=== PATIENT | male | born 1965 | race Caucasian/White ===

== ENCOUNTER 2016-06-24 05:07 | Emergency (ER) | payer SELFPAY ==
[~2016-06-24] VITALS: Ht 180.3 cm; Wt 90.0 kg
[~2016-06-24 05:07] MED LIST: ACET325S8 PO; AMOX500T PO; BUSP10 PO; LACT10SO47 PO; LATU40TA PO; LURA20TA PO; PRAZ2 PO; VENTAER INH
[2016-06-24 05:09] VITALS: BP 116/72; PULSE 81; RESP 18; TEMP 97.9; O2SAT 94
[2016-06-24] MEDS ORDERED: KETOROLAC TROMETHAMINE 60 MG/2 ML (IM) VIAL IM ONE (05:30)
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
[2016-06-24] MEDS ORDERED: NAPROXEN 500 MG TAB PO ONE (05:45)
--- NOTE | 2016-06-24 06:04 | RADRPT ---
EXAM DATE/TIME: 06/24/2016 05:29 [facility] COMPARISON: No previous studies available for comparison. INDICATIONS : Fall. Left ankle pain. MEDICAL HISTORY : None. SURGICAL HISTORY : None. ENCOUNTER: Initial ACUITY: 1 day PAIN SCORE: 8/10 LOCATION: Left lateral FINDINGS: 3 views of the left ankle reveal an acute fracture normal distal fibular metaphysis. This is obliquel y oriented in nature relative to the long axis of the bone. No angulation or distraction. Overlying s oft tissue swelling. Distal tibia is intact. CONCLUSION: 1. Acute distal fibular fracture. Leland Duran Jr., MD on June 24, 2016 at 6:01 Board Certified Radiologist. This report was verified electronically.
[2016-06-24] MEDS ORDERED: NAPR500 PO (06:19)
== END 2016-06-24 07:04 | disposition home or self-care (01) ==
LOC: NEPB 05:07
DX: S82.832A Other fracture of upper and lower end of left fibula, initial encounter for closed fracture (principal); H91.91 Unspecified hearing loss, right ear; F17.200 Nicotine dependence, unspecified, uncomplicated; W18.49XA Other slipping, tripping and stumbling without falling, initial encounter; X50.1XXA Overexertion from prolonged static or awkward postures, initial encounter; Y92.838 Other recreation area as the place of occurrence of the external cause; Z59.0 Homelessness; Z87.39 Personal history of other diseases of the musculoskeletal system and connective tissue; Z87.19 Personal history of other diseases of the digestive system; Z87.09 Personal history of other diseases of the respiratory system; Z86.69 Personal history of other diseases of the nervous system and sense organs; Z86.59 Personal history of other mental and behavioral disorders
CPT/HCPCS: 29515; 73610; 99284; E0113

== ENCOUNTER 2016-11-16 21:41 | Inpatient (IN) | payer OTHER ==
[~2016-11-16] VITALS: Ht 185.4 cm; Wt 86.0 kg
[~2016-11-16 21:41] MED LIST changes: +NAPR500 PO
[2016-11-16 22:08] VITALS: BP 132/80; PULSE 76; RESP 18; TEMP 98; O2SAT 98
[2016-11-16] MEDS ORDERED: SODIUM CHLOR 0.9% 1000 ML INJ 1,000 ML IV SCH (22:27)
[2016-11-16] MEDS ORDERED: MORPHINE SULFATE 4 MG/ML INJ IV PUSH ONE (22:30)
[2016-11-16] MEDS ORDERED: TETANUS/DIPHTHERIA TOXOID ADULT 0.5 ML VIAL IM ONE (22:30)
[2016-11-16] MEDS ORDERED: PIPERACIL-TAZO 3.375 GM PREMIX 50 ML IV ONE (22:30)
[2016-11-16 23:05] LABS: AUTOMATED NEUTROPHIL # 2.8 TH/MM3 (1.8-7.7); BASOPHIL # 0.1 TH/MM3 (0-0.2); BASOPHIL % 0.9 % (0.0-2.0); EOSINOPHIL # 0.3 TH/MM3 (0-0.4); EOSINOPHIL % 4.3 % (0.0-4.0); HEMATOCRIT 45.2 % (39.0-51.0); LYMPH % 42.7 % (9.0-44.0); LYMPHOCYTE # 2.8 TH/MM3 (1.0-4.8); MEAN CELL VOLUME 98.4 FL (80.0-100.0); MEAN CORPUSCULAR HEMOGLOBIN 34.3 PG (27.0-34.0); MEAN CORPUSCULAR HGB CONC 34.9 % (32.0-36.0); MONO % 8.8 % (0.0-8.0); NEUT % 43.3 % (16.0-70.0); PLATELET COUNT 71 TH/MM3 (150-450); RED BLOOD COUNT 4.59 MIL/MM3 (4.50-5.90); RED CELL DISTRIBUTION WIDTH 14.5 % (11.6-17.2); WHITE BLOOD COUNT 6.5 TH/MM3 (4.0-11.0)
[2016-11-16 23:07] LABS: HEMO FLAGS AUTO DIFF
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
[2016-11-16 23:15] LABS: APTT (PATIENT) 29.1 SEC (24.3-30.1); INTERNATIONAL NORMALIZED RATIO 1.2 RATIO; PROTHROMBIN TIME - PATIENT 13.4 SEC (9.8-11.6)
[2016-11-16 23:39] LABS: ALT (GPT) 88 U/L (12-78)
[2016-11-16 23:41] LABS: ALKALINE PHOSPHATASE 85 U/L (45-117); TOTAL BILIRUBIN ADULT 1.1 MG/DL (0.2-1.0)
[2016-11-16 23:44] LABS: ALCOHOL 261 MG/DL (0-5); ANION GAP 6 MEQ/L (5-15); AST (GOT) 106 U/L (15-37); BICARBONATE 24.6 MEQ/L (21.0-32.0); BLOOD UREA NITROGEN 5 MG/DL (7-18); CHLORIDE 108 MEQ/L (98-107); GLOMERULAR FILTRATION RATE 143 ML/MIN (>89); POTASSIUM 4.1 MEQ/L (3.5-5.1); SODIUM (NA) 139 MEQ/L (136-145)
[2016-11-16 23:57] LABS: PLATELET ESTIMATE SMEAR LOW (NORMAL); PLATELET MORPHOLOGY NORMAL (NORMAL); SCAN/DIFF AUTO DIFF CONFIRMED
[2016-11-17] VITALS (7 sets, daily range): BP systolic 92–135; BP diastolic 57–85; PULSE 80–100; RESP 17–18; TEMP 96.3–99.5; O2SAT 92–99
[2016-11-17] MEDS ORDERED: IOHEXOL 350 MG/ML 10 ML VIAL (for RAD DIAG) IV ONE (00:36)
--- NOTE | 2016-11-17 00:48 | RADRPT ---
EXAM DATE/TIME: 11/17/2016 00:26 [facility] COMPARISON: No previous studies available for comparison. INDICATIONS : Trauma, fall. IV CONTRAST: 100 cc Omnipaque 350 (iohexol) IV ORAL CONTRAST: No oral contrast ingested. RADIATION DOSE: 10.63 CTDIvol (mGy) MEDICAL HISTORY : Hepatitis C. Chronic obstructive pulmonary disease. SURGICAL HISTORY : None. ENCOUNTER: Initial ACUITY: 1 day PAIN SCALE: 8/10 LOCATION: abdomen TECHNIQUE: Volumetric scanning of the abdomen and pelvis was performed. Using automated exposure control and ad justment of the mA and/or kV according to patient size, radiation dose was kept as low as reasonably achievable to obtain optimal diagnostic quality images. DICOM format image data is available electro nically for review and comparison. FINDINGS: Lung bases demonstrate parenchymal scarring and atelectasis and some emphysematous change. There is liver cirrhosis and some fatty infiltration. Spleen enlarged to 18 cm. Adrenals, kidneys and pancreas unremarkable. Calcified gallstones in gallbladder. There is some free fluid in Kirby's p ouch. There is a fat containing ventral hernia measuring about 6.6 cm in diameter also containing connie e blood vessels. There are multiple remote pelvic fractures. There is a foreign body extending into the scrotum on the left side with some air and fluid in the left scrotal sac and extending into the left lower inguinal region. No definite acute pelvic fracture identified. CONCLUSION: 1. Foreign body seen extending into left scrotum with air and fluid in the left scrotum and extending cephalad into the left lower inguinal region. 2. Fat containing ventral hernia measuring up to about 6.6 cm in diameter. 3. Numerous remote pelvic fractures. 4. Liver cirrhosis, splenomegaly and small amount of free fluid in Kirby's pouch. 5. Calcified gallstones without biliary ductal dilatation. Alex Larose MD on November 17, 2016 at 0:39 Board Certified Radiologist. This report was verified electronically.
[2016-11-17] MEDS ORDERED: HYDROmorphone HCL PF 1 MG/ML VIAL IV PUSH ONE (01:00)
[2016-11-17] MEDS ORDERED: BISACODYL 10 MG SUPP RECTAL PRN (01:30)
[2016-11-17] MEDS ORDERED: HALOPERIDOL LACTATE 5 MG/ML AMP IM PRN (01:30)
[2016-11-17] MEDS ORDERED: LORazepam 2 MG/ML VIAL IV PUSH PRN ×4 (01:30)
[2016-11-17] MEDS ORDERED: MAGNESIUM HYDROXIDE SUSP 30 ML CUP PO PRN (01:30)
[2016-11-17] MEDS ORDERED: ACETAMINOPHEN 325 MG TAB PO PRN (01:30)
[2016-11-17] MEDS ORDERED: SENNOSIDES 8.6 MG TAB PO PRN (01:30)
[2016-11-17] MEDS ORDERED: LACTULOSE SYRUP 20 GM/30 ML CUP PO PRN (01:30)
[2016-11-17] MEDS ORDERED: ONDANSETRON HCL 4 MG/2 ML VIAL IVP PRN (01:30)
[2016-11-17] MEDS ORDERED: LORazepam 1 MG TAB PO PRN (01:30)
[2016-11-17] MEDS ORDERED: SODIUM CHLORIDE 0.9% FLUSH 10 ML FLUSH IV FLUSH PRN (01:30)
[2016-11-17] MEDS ORDERED: FLUMAZENIL 0.5 MG/5 ML VIAL IV PUSH PRN (01:30)
[2016-11-17] MEDS: SODIUM CHLOR 0.9% 1000 ML INJ 1,000 ML IV SCH ×2 (01:30→23:28)
[2016-11-17] MEDS: CLINDAMYCIN INJ 900 MG in SODIUM CHLORIDE 0.9% INJ 100 ML IV SCH ×3 (02:55→18:58)
[2016-11-17] MEDS: MORPHINE SULFATE 4 MG/ML INJ IV PRN ×2 (03:34→18:57)
--- NOTE | 2016-11-17 03:55 | HHI.HP ---
[facility] Unknown Admission Diagnosis scrotal foreign body Diagnoses: (1) Scrotal trauma Diagnosis: Principal (2) Alcohol abuse Diagnosis: Principal (3) Thrombocytopenia Diagnosis: Principal Travel History International Travel<30 Days: No Contact w/Intl Traveler <30 Da: No Traveled to Known Affected Are: No History of Present Illness This is a 51-year-old Homeless male with a PMH of Alcohol Abuse, Hepatitis C, COPD and Cirrhosis who presented to the ER with scrotal trauma. Patient was apparently walking through the [place] while [place] his [place], states he tripped on a log and fell onto a large cystic which impaled his left testicle. He notes significant pain and bleeding from site. No other injuries reported. On arrival, BP 132/80, HR 76, O2 sat 98% on RA, Afebrile. CBC unremarkable except for platelets 71, previously 84 on 09/11/15. Chemistry essentially unremarkable. LFTs elevated, similar comparison to previous labs. INR 1.2. Alcohol 261. CT Abd/Pelvis with foreign bodies extending into left scrotum with air-fluid in the left scrotum. Dr. Bennett consulted by ER physician, plan is for surgical intervention. Review of Systems Except as stated in HPI: all other systems reviewed are Neg ROS: 14 point review of systems otherwise negative. Past Family Social History Past Medical History PMH: Alcohol Abuse, Hepatitis C, COPD and Cirrhosis Past Surgical History PAST SURGICAL HISTORY: Jaw Surgery, Left Leg Surgery Allergies: Coded Allergies: No Known Allergies (Verified , 11/16/16) Family History PAST FAMILY HISTORY: Reviewed. No h/o DM or CAD Social History PAST SOCIAL HISTORY: Drinks 4-6 beers daily. Smokes 1/2ppd. Negative for drugs. Physical Exam Vital Signs Vital Signs Date Time Temp Pulse Resp B/P Pulse Ox O2 Delivery O2 Flow Rate FiO2 11/17/16 02:10 97.1 84 17 98/64 95 11/17/16 01:45 80 18 135/85 99 11/16/16 22:08 98.0 76 18 132/80 98 Physical Exam PE: GENERAL: Middle-aged white male in no acute distress, disheveled. HEENT: PERRLA, EOMI. No scleral icterus or conjunctival pallor. No lid lag or facial droop. CARDIOVASCULAR: Regular rate and rhythm. No obvious murmurs to auscultation. No chest tenderness to palpation. RESPIRATORY: No obvious rhonchi or wheezing. Clear to auscultation. Breath sounds equal bilaterally. GASTROINTESTINAL: Abdomen soft, non-tender, nondistended. BS normal. MUSCULOSKELETAL: Extremities without clubbing, cyanosis, or edema. No obvious deformities. Left hemiscrotum impaled with protruding stick, bleeding controlled NEUROLOGICAL: Awake, alert and oriented x4. No focal neurologic deficits. Moving both upper and lower extremities spontaneously. Laboratory Laboratory Tests Test 11/16/16 11/16/16 22:33 22:34 White Blood Count 6.5 Red Blood Count 4.59 Hemoglobin 15.8 Hematocrit 45.2 Mean Corpuscular Volume 98.4 Mean Corpuscular Hemoglobin 34.3 Mean Corpuscular Hemoglobin 34.9 Concent Red Cell Distribution Width 14.5 Platelet Count 71 Mean Platelet Volume 8.9 Neutrophils (%) (Auto) 43.3 Lymphocytes (%) (Auto) 42.7 Monocytes (%) (Auto) 8.8 Eosinophils (%) (Auto) 4.3 Basophils (%) (Auto) 0.9 Neutrophils # (Auto) 2.8 Lymphocytes # (Auto) 2.8 Monocytes # (Auto) 0.6 Eosinophils # (Auto) 0.3 Basophils # (Auto) 0.1 CBC Comment AUTO DIFF Differential Comment AUTO DIFF CONFIRMED Platelet Estimate LOW Platelet Morphology Comment NORMAL Prothrombin Time 13.4 Prothromb Time International 1.2 Ratio Activated Partial 29.1 Thromboplast Time Blood Type A POSITIVE Antibody Screen NEGATIVE Sodium Level 139 Potassium Level 4.1 Chloride Level 108 Carbon Dioxide Level 24.6 Anion Gap 6 Blood Urea Nitrogen 5 Creatinine 0.60 Estimat Glomerular Filtration 143 Rate Random Glucose 80 Calcium Level 7.7 Total Bilirubin 1.1 Aspartate Amino Transf 106 (AST/SGOT) Alanine Aminotransferase 88 (ALT/SGPT) Alkaline Phosphatase 85 Total Protein 8.7 Albumin 3.0 Ethyl Alcohol Level 261 Result Diagram: 11/16/16223211/16/162233 Assessment and Plan Problem List: (1) Scrotal trauma ICD Code: S39.94XA Status: Acute (2) Alcohol abuse ICD Code: F10.10 Status: Acute (3) Thrombocytopenia ICD Code: D69.6 Status: Acute Assessment and Plan A/P: 1. Scrotal Trauma: s/p mechanical fall onto stick w/ impalement injury to left testicle. CT Abd/Pelvis w/ foreign body seen extending into left scrotum with air-fluid, images reviewed by me. Dr. Bennett consulted by ER physician, plan is for surgical intervention in am. NPO, IVF, analgesics/antiemetics as needed. 2. Alcohol Abuse: w/ Acute Alcohol Intoxication. Drinks daily. CIWA, Seizure Precautions, MVT/Thiamine/Folate replacement. 3. Thrombocytopenia: Platelets 71, previously 84 on 09/11/15, bleeding controlled. Will monitor, repeat labs in am. 4. DVT Prophylaxis: SCD/Teds. 5. Social work for d/c planning as needed. 6. Case discussed w/ ER physician at length. Physician Certification 2 Midnight Certification Type: Admission for Inpatient Services Order for Inpatient Services The services are ordered in accordance with Medicare regulations or non- Medicare payer requirements, as applicable. In the case of services not specified as inpatient-only, they are appropriately provided as inpatient services in accordance with the 2-midnight benchmark. Estimated LOS (days): 2 days is the estimated time the patient will need to remain in the hospital, assuming treatment plan goals are met and no additional complications. Post-Hospital Plan: Not yet determined Griselda Hollins MD Nov 17, 2016 03:55
[2016-11-17] MEDS ORDERED: INSULIN HUMAN REGULAR 1,000 UNITS/10 ML VIAL SQ PRN (04:30)
[2016-11-17] MEDS ORDERED: METOPROLOL TARTRATE 25 MG TAB PO PRN (04:30)
[2016-11-17] MEDS ORDERED: POVIDONE IODINE 5% (ANTISEPSIS KIT) 4 APPLICATIONS EACH NARE PRN (04:30)
[2016-11-17] MEDS ORDERED: LACTATED RINGER'S 1000 ML IV PRN (04:30)
[2016-11-17] MEDS ORDERED: CHLORHEXIDINE GLUCONATE 2 % 1 PACK (2 CLOTHS) TOPICAL PRN (04:30)
[2016-11-17] MEDS ORDERED: SODIUM CHLORID 0.9% 500 ML IV PRN (04:30)
[2016-11-17] MEDS: SODIUM CHLORIDE 0.9% FLUSH 10 ML FLUSH IV FLUSH SCH ×2 (09:00→23:27)
[2016-11-17] MEDS: FOLIC ACID 1 MG TAB PO SCH (09:27)
[2016-11-17] MEDS: THIAMINE HCL 100 MG TAB PO SCH (09:27)
[2016-11-17] MEDS: MULTIVITAMINS/MINERALS THERAPEUTIC TAB PO SCH (09:27)
[2016-11-17] MEDS: DOCUSATE SODIUM 50 MG/SENNA 8.6 MG TAB PO SCH ×2 (09:27→23:27)
[2016-11-17] MEDS ORDERED: HYDROmorphone HCL PF 2 MG/ML VIAL ONE (10:47)
[2016-11-17] MEDS ORDERED: KETOROLAC TROMETHAMINE 60 MG/2 ML (IM) VIAL IM ONE (12:00)
[2016-11-17] MEDS ORDERED: PROPOFOL 200 MG/20 ML AMP IV ONE (12:00)
[2016-11-17] MEDS ORDERED: fentaNYL CITRATE 250 MCG/5 ML AMP ONE (12:32)
[2016-11-17] MEDS ORDERED: DO NOT ADM ANY ANTICOAGULANT DRUGS PRN (12:45)
--- NOTE | 2016-11-17 13:05 | PD.OP ---
Operative Report Date of Surgery: Nov 17, 2016 Preoperative Diagnosis: Scrotal Foreign body Postoperative Diagnosis: Procedure: Removal of foreign body, I & D of scrotal wound Surgeon: Rojas White Airline Pilot(s): n/a Operation and Findings: Wooden branch removed. Urethra, testicles intact Local wound care. Rojas White MD Nov 17, 2016 13:05
--- NOTE | 2016-11-17 16:08 | EKG ---
Date Performed: 11/17/2016 Time Performed: 05:23:34 PTAGE: 51 years EKG: Sinus rhythm Left axis deviation Poor R wave progression - probable normal variant Low QRS voltages in limb leads Compared to previous tracing, axis is now more leftward, otherwise no significant change Abnormal EC G PREVIOUS TRACING : 09/11/2015 07.48 DOCTOR: Mike Abarca Interpretating Date/Time 11/17/2016 16:06:21
[2016-11-17] MEDS: LORazepam 2 MG TAB PO PRN ×2 (23:28→23:35)
[2016-11-18] VITALS (7 sets, daily range): BP systolic 101–117; BP diastolic 66–76; PULSE 80–104; RESP 15–18; TEMP 97.4–100; O2SAT 90–97
[2016-11-18] MEDS: CLINDAMYCIN INJ 900 MG in SODIUM CHLORIDE 0.9% INJ 100 ML IV SCH ×3 (02:00→17:37)
[2016-11-18 04:20] LABS: BASOPHIL % 0.3 % (0.0-2.0); EOSINOPHIL # 0.2 TH/MM3 (0-0.4); EOSINOPHIL % 2.9 % (0.0-4.0); HEMATOCRIT 40.8 % (39.0-51.0); LYMPH % 26.6 % (9.0-44.0); LYMPHOCYTE # 1.4 TH/MM3 (1.0-4.8); MEAN CELL VOLUME 98.7 FL (80.0-100.0); MEAN CORPUSCULAR HEMOGLOBIN 33.3 PG (27.0-34.0); MEAN CORPUSCULAR HGB CONC 33.8 % (32.0-36.0); NEUT % 58.2 % (16.0-70.0); PLATELET COUNT 48 TH/MM3 (150-450); RED BLOOD COUNT 4.14 MIL/MM3 (4.50-5.90); RED CELL DISTRIBUTION WIDTH 14.2 % (11.6-17.2); WHITE BLOOD COUNT 5.2 TH/MM3 (4.0-11.0)
[2016-11-18 04:37] LABS: HEMO FLAGS AUTO DIFF
[2016-11-18 05:00] LABS: ALKALINE PHOSPHATASE 61 U/L (45-117); ALT (GPT) 55 U/L (12-78); ANION GAP 4 MEQ/L (5-15); AST (GOT) 53 U/L (15-37); BLOOD UREA NITROGEN 8 MG/DL (7-18); CHLORIDE 102 MEQ/L (98-107); GLOMERULAR FILTRATION RATE 165 ML/MIN (>89); POTASSIUM 3.6 MEQ/L (3.5-5.1); SODIUM (NA) 136 MEQ/L (136-145); TOTAL BILIRUBIN ADULT 2.5 MG/DL (0.2-1.0)
[2016-11-18 05:43] LABS: PLATELET ESTIMATE SMEAR LOW (NORMAL); PLATELET MORPHOLOGY NORMAL (NORMAL); SCAN/DIFF AUTO DIFF CONFIRMED
[2016-11-18] MEDS: MORPHINE SULFATE 4 MG/ML INJ IV PRN ×4 (07:05→23:52)
--- NOTE | 2016-11-18 07:08 | MP ---
cc: ROJAS ORONA MD DATE OF OPERATION 11/17/2016. PREOPERATIVE DIAGNOSIS Scrotal foreign body. POSTOPERATIVE DIAGNOSIS: Scrotal foreign body. PROCEDURE PERFORMED 1. Removal of scrotal foreign body. 2. Incision and drainage of scrotal wound. SURGEON Dr. Orona. ANESTHESIA General COMPLICATIONS None. PREOPERATIVE ANTIBIOTICS: Zosyn 3.275 grams. DRAINS: None. SPECIMEN None BLOOD LOSS Minimal DISPOSITION To recovery INDICATION The patient is a 51-year-old homeless male who while walking in [place] last night, tripped and fell and landed on a large sharp wooden spear that per the patient went through his clothes and pierced his scrotum. The patient came to the ER, ____ was performed which showed it to be mainly superficial. Due to this impaling injury, the patient was scheduled to go to the OR for exploration and removal of object. The risks, benefits and alternatives were explained. The patient wished to proceed. Informed consent was obtained. DETAILS OF PROCEDURE: The patient was identified, brought back to the operating room, placed supine on the operating room table. A proper time out was performed. The patient was induced under general anesthetic. The patient received 3.275 grams every four hours. Therefore, preoperative antibiotics were not indicated at this time. The patient was prepped and draped in normal sterile surgical fashion. I began by gently removing the large wooden spear which was only approximately 3/4 inch was remaining in the scrotum. A catheter was then gently passed into his bladder. Clear yellow urine returned indicating no evidence of urethral injury. At this time, I then copiously irrigated the scrotal wound which appeared to be superficial. Both testicles appeared to be intact. I then debrided some of the scrotal edges for healthy tissue as there were several areas that were dusky on the edge. I then used 1/4 inch iodoform packing to pack the wound at the conclusion of the procedure. The patient was extubated and sent to recovery in stable condition. The patient will be returned to the floor for routine postoperative care. Rojas Orona MD EMF/DAVID /12:14 PM /6:39 AM
[2016-11-18] MEDS: SODIUM CHLOR 0.9% 1000 ML INJ 1,000 ML IV SCH ×2 (07:18→17:18)
[2016-11-18] MEDS: LORazepam 2 MG TAB PO PRN ×3 (07:45→20:10)
[2016-11-18] MEDS: DOCUSATE SODIUM 50 MG/SENNA 8.6 MG TAB PO SCH ×2 (09:00→20:10)
[2016-11-18] MEDS: THIAMINE HCL 100 MG TAB PO SCH (09:00)
[2016-11-18] MEDS: MULTIVITAMINS/MINERALS THERAPEUTIC TAB PO SCH (09:00)
[2016-11-18] MEDS: FOLIC ACID 1 MG TAB PO SCH (09:00)
[2016-11-18] MEDS: SODIUM CHLORIDE 0.9% FLUSH 10 ML FLUSH IV FLUSH SCH ×2 (09:00→20:11)
--- NOTE | 2016-11-18 17:04 | HHI.PR ---
Subjective Remarks Patient reports feeling somewhat lazy, but denies any horrific genital pain. Eating well, with no nausea vomiting . Status post scrotal debridement Objective Vital Signs Date Time Temp Pulse Resp B/P (MAP) Pulse Ox O2 Delivery O2 Flow Rate FiO2 11/18/16 12:00 98.2 83 15 105/69 (81) 94 11/18/16 08:00 97.4 83 16 101/72 (82) 90 11/18/16 04:09 98.4 80 18 102/66 (78) 97 11/18/16 00:10 99.3 90 18 108/68 (81) 96 11/17/16 20:37 Nasal Cannula 2.00 11/17/16 20:15 98.7 85 18 111/77 (88) 97 I/O 11/17/16 11/17/16 11/17/16 11/18/16 11/18/16 11/18/16 06:59 14:59 22:59 06:59 14:59 22:59 Intake Total 0 ml 820 ml 480 ml 120 ml 275 ml Output Total 700 ml 620 ml 500 ml 300 ml 500 ml Balance -700 ml 200 ml -20 ml -180 ml -225 ml Intake Oral 0 ml 120 ml 480 ml 120 ml 275 ml Other 700 ml Output Urine Total 700 ml 620 ml 500 ml 300 ml 500 ml # Bowel Movements 0 0 0 0 Result Diagram: 11/18/16 0321 11/18/16 032 Objective Remarks GENERAL: No acute distress CARDIOVASCULAR: Regular rate and rhythm without murmurs, gallops, or rubs. RESPIRATORY: Breath sounds equal and clear bilaterally. Unlabored breathing GASTROINTESTINAL: Abdomen soft, non-tender, nondistended. : Scrotum in dressing MUSCULOSKELETAL: No cyanosis, or edema. A/P Assessment and Plan A/P: 1. Scrotal Trauma: s/p debridement POD 1. 2. Alcohol Abuse: w/ Acute Alcohol Intoxication. CIWA, Seizure Precautions, MVT/Thiamine/Folate replacement. 3. Thrombocytopenia: Platelets 71, dropped to 48 today, unclear cause, not on heparin, repeat in AM 4. DVT Prophylaxis: SCD/Teds. Surendra Youngblood MD Nov 18, 2016 17:04
[2016-11-19] VITALS (7 sets, daily range): BP systolic 118–134; BP diastolic 71–89; PULSE 71–97; RESP 17–18; TEMP 97–98.1; O2SAT 94–98
[2016-11-19] MEDS: LORazepam 2 MG TAB PO PRN ×2 (00:21→06:04)
[2016-11-19] MEDS: CLINDAMYCIN INJ 900 MG in SODIUM CHLORIDE 0.9% INJ 100 ML IV SCH ×3 (03:08→18:38)
[2016-11-19] MEDS: SODIUM CHLOR 0.9% 1000 ML INJ 1,000 ML IV SCH ×3 (03:17→23:18)
[2016-11-19 05:23] LABS: AUTOMATED NEUTROPHIL # 2.2 TH/MM3 (1.8-7.7); BASOPHIL # 0.1 TH/MM3 (0-0.2); BASOPHIL % 1.8 % (0.0-2.0); EOSINOPHIL # 0.2 TH/MM3 (0-0.4); EOSINOPHIL % 3.7 % (0.0-4.0); HEMATOCRIT 39.3 % (39.0-51.0); LYMPH % 30.1 % (9.0-44.0); LYMPHOCYTE # 1.3 TH/MM3 (1.0-4.8); MEAN CELL VOLUME 98.2 FL (80.0-100.0); MEAN CORPUSCULAR HEMOGLOBIN 33.9 PG (27.0-34.0); MEAN CORPUSCULAR HGB CONC 34.5 % (32.0-36.0); MONO % 13.1 % (0.0-8.0); NEUT % 51.3 % (16.0-70.0); PLATELET COUNT 45 TH/MM3 (150-450); WHITE BLOOD COUNT 4.2 TH/MM3 (4.0-11.0)
[2016-11-19 05:25] LABS: HEMO FLAGS AUTO DIFF
[2016-11-19 06:53] LABS: PLATELET ESTIMATE SMEAR LOW (NORMAL); PLATELET MORPHOLOGY NORMAL (NORMAL); SCAN/DIFF AUTO DIFF CONFIRMED
[2016-11-19] MEDS: FOLIC ACID 1 MG TAB PO SCH (08:59)
[2016-11-19] MEDS: THIAMINE HCL 100 MG TAB PO SCH (08:59)
[2016-11-19] MEDS: MULTIVITAMINS/MINERALS THERAPEUTIC TAB PO SCH (08:59)
[2016-11-19] MEDS: DOCUSATE SODIUM 50 MG/SENNA 8.6 MG TAB PO SCH ×2 (08:59→23:17)
[2016-11-19] MEDS: SODIUM CHLORIDE 0.9% FLUSH 10 ML FLUSH IV FLUSH SCH ×2 (08:59→23:23)
[2016-11-19] MEDS: MORPHINE SULFATE 4 MG/ML INJ IV PRN ×2 (09:00→23:19)
--- NOTE | 2016-11-19 19:24 | HHI.PR ---
Subjective Remarks Patient reports having mild dysuria, but otherwise tolerating meals well, afebrile Objective Vital Signs Date Time Temp Pulse Resp B/P (MAP) Pulse Ox O2 Delivery O2 Flow Rate FiO2 11/19/16 12:06 97 21 11/19/16 12:00 97.1 73 18 134/89 (104) 98 11/19/16 08:00 97.0 71 18 131/79 (96) 94 11/19/16 04:25 97.6 86 17 125/83 (97) 95 11/19/16 00:18 98.0 97 17 122/85 (97) 95 11/18/16 20:20 98.3 103 17 117/76 (90) 95 I/O 11/18/16 11/18/16 11/18/16 11/19/16 11/19/16 11/19/16 06:59 14:59 22:59 06:59 14:59 22:59 Intake Total 120 ml 275 ml 240 ml 480 ml 106 ml Output Total 300 ml 500 ml 500 ml 1400 ml Balance -180 ml -225 ml -260 ml -920 ml 106 ml Intake Oral 120 ml 275 ml 240 ml 480 ml IV Total 106 ml Output Urine Total 300 ml 500 ml 500 ml 1400 ml # Voids 1 # Bowel Movements 0 0 0 0 Result Diagram: 11/19/16 0412 11/18/16 0321 Objective Remarks GENERAL: No acute distress, more awake today RESPIRATORY: Unlabored breathing GASTROINTESTINAL: Abdomen soft, non-tender, nondistended. : Scrotum in dressing A/P Assessment and Plan A/P: 1. Scrotal Trauma: s/p debridement POD 2. on clindamycin. 2. Alcohol Abuse: w/ Acute Alcohol Intoxication. CIWA, Seizure Precautions, MVT/Thiamine/Folate replacement. 3. 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 DVT Prophylaxis: SCD/Teds. Will touch base w/ urology for plans for discharge in next 24 hours. Surendra Youngblood MD Nov 19, 2016 19:23
[2016-11-20 00:15] VITALS: BP 125/91; PULSE 70; RESP 18; TEMP 97.1; O2SAT 97
[2016-11-20] MEDS: CLINDAMYCIN INJ 900 MG in SODIUM CHLORIDE 0.9% INJ 100 ML IV SCH ×2 (02:35→08:52)
[2016-11-20] MEDS: MORPHINE SULFATE 4 MG/ML INJ IV PRN ×2 (02:40→06:41)
[2016-11-20 04:15] VITALS: BP 108/79; PULSE 72; RESP 18; TEMP 98; O2SAT 97
[2016-11-20 07:59] LABS: AUTOMATED NEUTROPHIL # 1.5 TH/MM3 (1.8-7.7); BASOPHIL % 0.7 % (0.0-2.0); EOSINOPHIL # 0.2 TH/MM3 (0-0.4); EOSINOPHIL % 5.8 % (0.0-4.0); HEMATOCRIT 41.3 % (39.0-51.0); LYMPH % 35.8 % (9.0-44.0); LYMPHOCYTE # 1.2 TH/MM3 (1.0-4.8); MEAN CORPUSCULAR HEMOGLOBIN 33.4 PG (27.0-34.0); MEAN CORPUSCULAR HGB CONC 34.4 % (32.0-36.0); MONO % 12.4 % (0.0-8.0); NEUT % 45.3 % (16.0-70.0); PLATELET COUNT 56 TH/MM3 (150-450); RED BLOOD COUNT 4.26 MIL/MM3 (4.50-5.90); WHITE BLOOD COUNT 3.3 TH/MM3 (4.0-11.0)
[2016-11-20 08:00] VITALS: BP 109/78; PULSE 76; RESP 18; TEMP 96.8; O2SAT 96
[2016-11-20 08:03] LABS: HEMO FLAGS AUTO DIFF
[2016-11-20 08:46] LABS: PLATELET ESTIMATE SMEAR LOW (NORMAL); PLATELET MORPHOLOGY NORMAL (NORMAL); SCAN/DIFF AUTO DIFF CONFIRMED
[2016-11-20] MEDS: MULTIVITAMINS/MINERALS THERAPEUTIC TAB PO SCH (08:52)
[2016-11-20] MEDS: SODIUM CHLOR 0.9% 1000 ML INJ 1,000 ML IV SCH (08:52)
[2016-11-20] MEDS: THIAMINE HCL 100 MG TAB PO SCH (08:52)
[2016-11-20] MEDS: DOCUSATE SODIUM 50 MG/SENNA 8.6 MG TAB PO SCH (08:52)
[2016-11-20] MEDS: FOLIC ACID 1 MG TAB PO SCH (08:52)
[2016-11-20] MEDS: SODIUM CHLORIDE 0.9% FLUSH 10 ML FLUSH IV FLUSH SCH (08:53)
[2016-11-20] MEDS ORDERED: ACETAMINOPHEN/HYDROcodone 325 MG/5 MG TAB PO PRN (09:00)
[2016-11-20 10:57] VITALS: O2SAT 96
[2016-11-20 12:00] VITALS: BP 103/67; PULSE 58; RESP 18; TEMP 97.2; O2SAT 96
[2016-11-20] MEDS ORDERED: CLIN1CAP6 PO (13:24)
[2016-11-20] MEDS ORDERED: HYDR-3580 PO (13:41)
--- NOTE | 2016-11-20 13:42 | HHI.DCPOC ---
Discharge Care Plan Your Health Problems Are: Incision/Drains Goals to Promote Your Health * To prevent worsening of your condition and complications * To maintain your health at the optimal level You may shower, change dressing/packing to wound daily. Directions to Meet Your Goals Take your medications as prescribed Follow your dietary instruction Follow activity as directed Keep your appointments as scheduled Take your immunizations and boosters as scheduled If your symptoms worsen call your PCP, if no PCP go to Urgent Care Center or Emergency Room Smoking is Dangerous to Your Health. Avoid second hand smoke Call the 24-hour hour crisis hotline for domestic abuse at Surendra Youngblood MD Nov 20, 2016 13:42
--- NOTE | 2016-11-20 20:36 | HHI.DS ---
Discharge Summary Admission Date Nov 17, 2016 at 01:09 Discharge Date: Nov 20, 2016 Admitting Diagnosis scrotal foreign body (1) Scrotal trauma ICD Code: S39.94XA - Unspecified injury of external genitals, initial encounter Status: Acute (2) Alcohol abuse ICD Code: F10.10 - Alcohol abuse Status: Acute (3) Thrombocytopenia ICD Code: D69.6 - Thrombocytopenia Status: Acute Procedures scrotal debridement and removal of foreign body Brief History - From Admission This is a 51-year-old Homeless male with a PMH of Alcohol Abuse, Hepatitis C, COPD and Cirrhosis who presented to the ER with scrotal trauma. Patient was apparently walking [place] his [place], states he tripped on a log and fell onto a large cystic which impaled his left testicle. He notes significant pain and bleeding from site. No other injuries reported. On arrival, BP 132/80, HR 76, O2 sat 98% on RA, Afebrile. CBC unremarkable except for platelets 71, previously 84 on 09/11/15. Chemistry essentially unremarkable. LFTs elevated, similar comparison to previous labs. INR 1.2. Alcohol 261. CT Abd/Pelvis with foreign bodies extending into left scrotum with air-fluid in the left scrotum. Dr. Bennett consulted by ER physician, plan is for surgical intervention. CBC/BMP: 11/20/16 0721 11/18/16 0321 Significant Findings Laboratory Tests Test 11/18/16 03:21 11/19/16 04:12 11/20/16 07:21 Red Blood Count 4.14 MIL/MM3 (4.50-5.90) 4.00 MIL/MM3 (4.50-5.90) 4.26 MIL/MM3 (4.50-5.90) Platelet Count 48 TH/MM3 (150-450) 45 TH/MM3 (150-450) 56 TH/MM3 (150-450) Monocytes (%) (Auto) 12.0 % (0.0-8.0) 13.1 % (0.0-8.0) 12.4 % (0.0-8.0) Platelet Estimate LOW (NORMAL) LOW (NORMAL) LOW (NORMAL) Creatinine 0.53 MG/DL (0.60-1.30) Albumin 2.3 GM/DL (3.4-5.0) Calcium Level 8.0 MG/DL (8.5-10.1) Aspartate Amino Transf (AST/SGOT) 53 U/L (15-37) Total Bilirubin 2.5 MG/DL (0.2-1.0) Anion Gap 4 MEQ/L (5-15) White Blood Count 3.3 TH/MM3 (4.0-11.0) Eosinophils (%) (Auto) 5.8 % (0.0-4.0) Neutrophils # (Auto) 1.5 TH/MM3 (1.8-7.7) PE at Discharge GENERAL: No acute distress RESPIRATORY: Breath sounds equal and clear bilaterally. Unlabored breathing GASTROINTESTINAL: Abdomen soft, non-tender, nondistended. : Well-healing incision on inferior aspect of scrotum with sutures in place and no purulence or erythema noted. Hospital Course Patient was admitted, started on IV antibiotics, urology had performed scrotal debridement and removal of foreign body. Patient remained afebrile for the next 48 hours and was cleared for discharge from urology standpoint. Patient has met maximum benefit from hospitalization and is clinically stable for discharge. Pt Condition on Discharge: Good Discharge Disposition: Discharge Home Discharge Time: > 30 minutes Discharge Instructions DIET: Follow Instructions for: As Tolerated, No Restrictions Activities you can perform: Regular-No Restrictions Follow up Referrals: PCP Follow-up - 1 Week Urology - 1 Week with Rojas White MD New Medications: Clindamycin (Clindamycin) 300 Mg Cap 300 MG PO TID for Infection, #28 CAP 0 Refills Hydrocodone-Acetaminophen (Hydrocodone-Acetaminophen) 7.5-325 mg Tab 1 TAB PO Q8HR PRN for PAIN, #20 TAB 0 Refills Surendra Youngblood MD Nov 20, 2016 20:36
--- NOTE | 2016-11-21 09:54 | MB ---
cc: ROJAS ORONA MD DATE OF CONSULTATION: 11/17/2016. REASON FOR CONSULTATION: Scrotal trauma with foreign object lodged into his scrotum. HISTORY OF PRESENT ILLNESS: The patient is a 51-year-old homeless male with history of alcohol abuse, hepatitis C and cirrhosis who presented to the emergency room last night with acute scrotal trauma. According to the patient he was [place] and got lost, tripped on a log and fell onto a large stick that pierced through his clothing and into his scrotum. He noted significant pain with 10/10 intensity and bleeding from the site. He called 9-1-1 and was transferred to the [facility] for further evaluation. The patient had a CT of the abdomen and pelvis with and without contrast done which showed the large stick impaled into his scrotum but it appeared to be superficial with no damage to his testicles. He also was able to void on his own without any hematuria. The patient was admitted and urology was consulted for scrotal trauma. The patient denies any problems urinating at this time. He denies a history of kidney stones, abdominal pain, flank pain, fevers, chills, nausea or vomiting. REVIEW OF SYSTEMS: See the history of present illness, all systems reviewed are otherwise negative. PAST MEDICAL HISTORY: His past medical history is significant for: 1. Alcohol abuse. 2. Hepatitis C. 3. COPD. 4. Cirrhosis. PAST SURGICAL HISTORY: 1. Jaw surgery. 2. Left leg surgery. 3. Circumcision. ALLERGIES: NO KNOWN DRUG ALLERGIES. FAMILY HISTORY: Denies urolithiasis or genitourinary malignancies. SOCIAL HISTORY: He drinks four to six beers daily. He smokes half a pack per day for the last thirty years. He denies illicit drugs. He is homeless. He is unemployed. PHYSICAL EXAMINATION: VITAL SIGNS: Temperature 98.5, pulse 92, respirations 22, blood pressure 109/77, 98% on room air. GENERAL: He is alert and oriented times three and he is in mild distress. He is a pleasant and cooperative gentleman who appears older than his stated age. He is slightly disheveled. HEAD, EYES, EARS, NOSE, THROAT: Head is normocephalic and atraumatic. No scleral icterus. He is missing a left eye. Extraocular muscles of the right eye appear to be intact. NECK: The neck is supple. Trachea is midline. No jugular venous distention. SKIN: No ulcers or rashes seen. LUNGS: Clear to auscultation bilaterally. No wheezes, rales or rhonchi. HEART: Regular rate and rhythm. No murmurs, rubs or gallops. ABDOMEN: The abdomen is soft, nontender and nondistended. Positive bowel sounds. GENITOURINARY EXAM: His penis is circumcised. His scrotum is ecchymotic and slightly swollen and tender with a large 1 inch in circumference sharp stick lodged into his inferior portion of his scrotum. Prostate exam not indicated at this time. EXTREMITIES: Nontender. No cyanosis, clubbing or edema. PSYCHIATRIC: Flat affect but anxious. NEUROLOGICAL: Cranial nerves II through XII intact. Strength at 5/5 in all four extremities. LABS: White count of 6.5, hemoglobin 15.8, hematocrit 45.2, platelet count 71,000. INR 1.2. Sodium 139, potassium 4.1, chloride 108, bicarbonate 24.6, BUN 5, creatinine 0.60, calcium 7.7. Alcohol level 261. IMAGING STUDIES: CT abdomen and pelvis with and without contrast images were reviewed with the radiologist's report. The patient has a large foreign object into the left inferior portion of his scrotum with some air tracking up through his left inguinal canal. No evidence of testicular injury. ASSESSMENT AND PLAN: The patient is a 51-year-old male with acute scrotal trauma secondary to (Dictation cut off) Rojas Orona MD EMF/JCC /11:18 AM /9:50 AM
== END 2016-11-20 15:55 | disposition home or self-care (01) | DRG 730 ==
LOC: NEPD 21:41 → NEDA 11-17 01:09 → N06B 11-17 02:11
PROVIDERS: ADMIT Hospitalist; ATTEND Hospitalist
PROC: 0VC50ZZ Extirpation of Matter from Scrotum, Open Approach (ICD-10-PCS; principal; 2016-11-17 11:32)
DX: S31.3 Open wound of scrotum and testes (principal); D69.6 Thrombocytopenia, unspecified; K74.60 Unspecified cirrhosis of liver; F32.9 Major depressive disorder, single episode, unspecified; Z59.0 Homelessness; W01.118A Fall on same level from slipping, tripping and stumbling with subsequent striking against other sharp object, initial encounter; Y92.821 Forest as the place of occurrence of the external cause; F43.10 Post-traumatic stress disorder, unspecified; J44.9 Chronic obstructive pulmonary disease, unspecified; F17.210 Nicotine dependence, cigarettes, uncomplicated; F10.229 Alcohol dependence with intoxication, unspecified; Y90.8 Blood alcohol level of 240 mg/100 ml or more; B19.20 Unspecified viral hepatitis C without hepatic coma; F10.129 Alcohol abuse with intoxication, unspecified; D73.1 Hypersplenism
CPT/HCPCS: 74177; 80053; 80307; 82948; 85025; 85610; 85730; 86850; 86900; 86901; 90471; 90714; 93005; 96365; 96375; J1170; J1885; J2060; J2270; J2543; J3010; J7030; Q9967

== ENCOUNTER 2017-01-08 00:12 | Emergency (ER) | payer OTHER ==
[~2017-01-08 00:12] MED LIST changes: -ACET325S8 PO; -AMOX500T PO; -BUSP10 PO; +CLIN1CAP6 PO; +HYDR-3580 PO; -LACT10SO47 PO; -LATU40TA PO; -LURA20TA PO; -NAPR500 PO; -PRAZ2 PO; -VENTAER INH
[2017-01-08 00:43] VITALS: BP 115/82; PULSE 88; RESP 18; TEMP 98; O2SAT 97
[2017-01-08 01:12] LABS: AUTOMATED NEUTROPHIL # 1.9 TH/MM3 (1.8-7.7); BASOPHIL # 0.1 TH/MM3 (0-0.2); BASOPHIL % 1.2 % (0.0-2.0); EOSINOPHIL # 0.2 TH/MM3 (0-0.4); EOSINOPHIL % 4.4 % (0.0-4.0); HEMATOCRIT 43.9 % (39.0-51.0); LYMPH % 41.2 % (9.0-44.0); LYMPHOCYTE # 1.8 TH/MM3 (1.0-4.8); MEAN CELL VOLUME 97.4 FL (80.0-100.0); MEAN CORPUSCULAR HEMOGLOBIN 34.1 PG (27.0-34.0); MONO % 10.3 % (0.0-8.0); NEUT % 42.9 % (16.0-70.0); PLATELET COUNT 54 TH/MM3 (150-450); RED BLOOD COUNT 4.51 MIL/MM3 (4.50-5.90); RED CELL DISTRIBUTION WIDTH 15.3 % (11.6-17.2); WHITE BLOOD COUNT 4.4 TH/MM3 (4.0-11.0)
[2017-01-08 01:28] LABS: ALT (GPT) 67 U/L (12-78); ANION GAP 8 MEQ/L (5-15); AST (GOT) 100 U/L (15-37); BICARBONATE 28.1 MEQ/L (21.0-32.0); BLOOD UREA NITROGEN 4 MG/DL (7-18); CHLORIDE 105 MEQ/L (98-107); GLOMERULAR FILTRATION RATE 158 ML/MIN (>89); POTASSIUM 3.4 MEQ/L (3.5-5.1); SODIUM (NA) 141 MEQ/L (136-145)
[2017-01-08 01:30] LABS: ALCOHOL 237 MG/DL (0-5); ALKALINE PHOSPHATASE 106 U/L (45-117); TOTAL BILIRUBIN ADULT 1.7 MG/DL (0.2-1.0)
[2017-01-08 01:39] LABS: HEMO FLAGS AUTO DIFF
[2017-01-08 02:01] LABS: PLATELET ESTIMATE SMEAR LOW (NORMAL); PLATELET MORPHOLOGY NORMAL (NORMAL); SCAN/DIFF AUTO DIFF CONFIRMED
[2017-01-08] MEDS ORDERED: POTASSIUM CHLORIDE 20 MEQ CONTROLLED RELEASE TAB PO ONE (02:15)
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
[2017-01-08 07:46] VITALS: BP 98/63; PULSE 76; RESP 18; O2SAT 95
[2017-01-08] MEDS ORDERED: ONDANSETRON HCL 4 MG/2 ML VIAL IM ONE (12:15)
[2017-01-08] MEDS ORDERED: LORazepam 2 MG/ML VIAL IM ONE (12:15)
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
== END 2017-01-08 12:53 | disposition home or self-care (01) ==
LOC: NEPD 00:12
DX: F10.229 Alcohol dependence with intoxication, unspecified (principal); F17.210 Nicotine dependence, cigarettes, uncomplicated; Y90.7 Blood alcohol level of 200-239 mg/100 ml
CPT/HCPCS: 80053; 80307; 85025; 96372; 99284; J2060; J2405